=== PATIENT | male | born 1960 | race Caucasian/White ===

== ENCOUNTER 2024-02-04 21:26 | Emergency (ER) | payer BC ==
[2024-02-04 21:30] VITALS: RESP 18
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
[2024-02-04] MEDS: KETOROLAC 15 MG/ML 1 ML VIAL IVP STA (21:46)
[2024-02-04] MEDS: HYDROmorphone 0.5 MG/0.5 ML SYRINGE IVP STA ×2 (21:48→23:01)
[2024-02-04] MEDS: DIPH,PERTUS(ACELL)TETVAC-LF 0.5 ML VIAL IM ONE (21:48)
[2024-02-04] MEDS: SODIUM CHLORIDE 0.9% 1,000 ML IV ONE (21:49)
[2024-02-04] MEDS: BACITRACIN OINT 1 EACH PACKET TOPICAL ONE (22:37)
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
[2024-02-05] MEDS: HYDROcodone/APAP 5-325MG 1 EACH TAB PO STA (01:08)
[2024-02-05] MEDS: IBUPROFEN 600 MG TAB PO STA (01:09)
[2024-02-05 01:12] VITALS: BP 146/82; PULSE 69; TEMP 97.8
== END 2024-02-05 01:11 | disposition home or self-care (01) ==
LOC: EC 21:26
CPT/HCPCS: 71046; 90471; 90715; 96361; 96374; 96375; 96376; 99283